=== PATIENT | female | born 1970 | race African-American/Black ===

== ENCOUNTER 2018-01-27 09:53 | Emergency (ER) | payer OTHER ==
[~2018-01-27] VITALS: Ht 167.6 cm; Wt 81.7 kg
[~2018-01-27 09:53] MED LIST: ARAVA20 MG PO; BACTRIM DS TAB1 EACH PO; CALCIUM OYSTER500 MG; HYDROXYCHLOROQ200 M1 PO; ONDANSETRON HCL4 M2 PO; PROTONIX 20 MG20 M1 PO; REMICADE 1100 MG/VIA; ZANTAC 150MG T150 MG PO
[2018-01-27] MEDS ORDERED: CYMBALTA20 MG PO (09:59)
[2018-01-27] MEDS ORDERED: ACTEMRA162 MG/0.9 SUBQ (10:00)
[2018-01-27 10:44] LABS: BASOPHILS 1.2 % (0.0-2.0); EOSINOPHILS 2.9 % (0.0-3.0); HEMOGLOBIN 13.9 gm/dL (12.0-15.0); LYMPHOCYTES 24.3 % (24.0-44.0); MCH 30.7 pg (26.0-34.0); MCHC 34.8 g/dL (28.0-37.0); MCV 88.3 fL (80.0-100.0); MONOCYTES 7.5 % (1.0-8.0); PLATELET COUNT 175 thou/uL (150-400); POLYS 64.1 % (36.0-66.0); RBC 4.53 mil/uL (4.20-5.00); RDW 13.9 % (10.5-14.5); WBC 6.2 thou/uL (4.0-11.0)
[2018-01-27 10:52] LABS: CALCIUM 8.5 mg/dL (8.5-10.1); CREATININE 0.5 mg/dL (0.6-1.0); POTASSIUM 3.9 mmol/L (3.5-5.1)
[2018-01-27] MEDS ORDERED: SENNA8.6 MG PO (11:19)
[2018-01-27] MEDS ORDERED: HYDROCORTISONE30 G9 RECTAL (11:19)
[2018-01-27] MEDS ORDERED: ANUSOL-HC25 MG RECTAL (11:19)
[2018-01-27 11:48] VITALS: BP 144/57
== END 2018-01-27 11:48 | disposition home or self-care (01) ==
LOC: ER 09:53
PROVIDERS: Physician Assistant
DX: K64.4 Residual hemorrhoidal skin tags (principal); R11.2 Nausea with vomiting, unspecified; F17.210 Nicotine dependence, cigarettes, uncomplicated; M06.9 Rheumatoid arthritis, unspecified; Z96.652 Presence of left artificial knee joint; Z90.49 Acquired absence of other specified parts of digestive tract

== ENCOUNTER 2018-04-14 16:30 | Emergency (ER) | payer OTHER ==
[~2018-04-14] VITALS: Ht 167.6 cm; Wt 79.4 kg
--- NOTE | ~2018-04-14 | EKG ---
[place] [address] [facility] [place] [address] ELECTROCARDIOGRAM REPORT Name: IFEOMA BROWN Room #: [facility]#: [id number] Admission: 04/14/18 Attend Phys: Discharge: Date of : 68 Report #: [id number] THIS REPORT FOR: //name// [facility] ED Test Date: 2018-04-14 Test Time: 17:06:09 Pat Name: IFEOMA BROWN Department: Room: Gender: F Customer Service Representative: SANDRA : 1970 Requested By: Isaac Valentino Order Number: [id number] MD: Finesse Bray Measurements Intervals [place] Rate: 86 P: 5 NH: 168 QRS: -2 QRSD: 86 T: 38 QT: 366 QTc: 438 Interpretive Statements Sinus rhythm Probable left atrial enlargement Left ventricular hypertrophy Compared to ECG 08/26/2011 11:10:44 Left ventricular hypertrophy now present Electronically Signed On 04-14-2018 17:20:57 CDT by Finesse Bray [email or web address] <ELECTRONICALLY SIGNED> By: Finesse Bray MD, [facility] 04/14/18 1720 1705 05 Finesse Bray MD, FACC /EPI
[~2018-04-14 16:30] MED LIST changes: +ACTEMRA162 MG/0.9 SUBQ; +ANUSOL-HC25 MG RECTAL; +CYMBALTA20 MG PO; +HYDROCORTISONE30 G9 RECTAL; +SENNA8.6 MG PO
[2018-04-14 17:17] LABS: ABSOLUTE NEUTROPHILS 4.5 thou/uL (1.4-8.2); BASOPHILS 1.4 % (0.0-2.0); HEMATOCRIT 43.4 % (37.0-47.0); HEMOGLOBIN 14.6 gm/dL (12.0-15.0); LYMPHOCYTES 24.1 % (24.0-44.0); MCH 29.8 pg (26.0-34.0); MCHC 33.7 g/dL (28.0-37.0); MCV 88.2 fL (80.0-100.0); MONOCYTES 9.1 % (1.0-8.0); PLATELET COUNT 252 thou/uL (150-400); POLYS 62.4 % (36.0-66.0); RBC 4.92 mil/uL (4.20-5.00); RDW 13.4 % (10.5-14.5); WBC 7.2 thou/uL (4.0-11.0)
[2018-04-14 17:23] LABS: ANION GAP 8 mmol/L (7-16); BUN 13 mg/dL (7-18); CHLORIDE 102 mmol/L (98-107); CO2 27 mmol/L (21-32); CREATININE 0.8 mg/dL (0.6-1.0); GLUCOSE 116 mg/dL (74-106); POTASSIUM 3.3 mmol/L (3.5-5.1); SODIUM 137 mmol/L (136-145)
[2018-04-14 17:25] LABS: URINE BILIRUBIN NEGATIVE (Negative); URINE BLOOD NEGATIVE (Negative); URINE CLARITY CLEAR; URINE COLOR YELLOW; URINE GLUCOSE-RANDOM* NEGATIVE (Negative); URINE KETONES 1+ (Negative); URINE LEUKOCYTES-REFLEX NEGATIVE (Negative); URINE NITRITE-REFLEX NEGATIVE (Negative); URINE PROTEIN (DIPSTICK) NEGATIVE (Negative); URINE SPECIFIC GRAVITY 1.025 (1.005-1.035); URINE UROBILINOGEN 0.2 E.U./dl (0.2-1.0)
[2018-04-14 17:32] LABS: ALBUMIN 3.8 g/dL (3.4-5.0); SGOT 20 U/L (15-37); SGPT 16 U/L (30-65); TOTAL BILIRUBIN 0.3 mg/dL (<0.1-1.0); TOTAL PROTEIN 7.9 g/dL (6.4-8.2); TROPONIN-I <0.06 ng/mL (<0.06)
[2018-04-14] MEDS ORDERED: IBUPROFEN 600600 M1 PO (18:24)
[2018-04-14 19:05] VITALS: BP 117/79
== END 2018-04-14 19:06 | disposition home or self-care (01) ==
LOC: ER 16:30
PROVIDERS: Physician Assistant
DX: R20.0 Anesthesia of skin (principal); R07.9 Chest pain, unspecified; M25.511 Pain in right shoulder; R11.0 Nausea; R10.9 Unspecified abdominal pain; R42 Dizziness and giddiness; M06.9 Rheumatoid arthritis, unspecified; K21.9 Gastro-esophageal reflux disease without esophagitis; F17.210 Nicotine dependence, cigarettes, uncomplicated; Z96.652 Presence of left artificial knee joint

== ENCOUNTER 2018-05-21 07:28 | Emergency (ER) | payer OTHER ==
[~2018-05-21] VITALS: Ht 167.6 cm; Wt 77.1 kg
[~2018-05-21 07:28] MED LIST changes: +IBUPROFEN 600600 M1 PO
[2018-05-21] MEDS ORDERED: MOBIC15 MG PO (08:43)
== END 2018-05-21 09:10 | disposition home or self-care (01) ==
LOC: ER 07:28
DX: J06.9 Acute upper respiratory infection, unspecified (principal); M06.9 Rheumatoid arthritis, unspecified; F17.210 Nicotine dependence, cigarettes, uncomplicated; Z96.652 Presence of left artificial knee joint

== ENCOUNTER 2018-07-03 04:32 | Inpatient (IN) | payer OTHER ==
[~2018-07-03] VITALS: Ht 167.6 cm; Wt 86.6 kg
[~2018-07-03 04:32] MED LIST changes: +MOBIC15 MG PO
[2018-07-03 04:34] VITALS: BP 150/91
[2018-07-03 04:56] LABS: ABSOLUTE NEUTROPHILS 6.3 thou/uL (1.4-8.2); BASOPHILS 0.6 % (0.0-2.0); EOSINOPHILS 7.8 % (0.0-3.0); HEMATOCRIT 48.4 % (37.0-47.0); HEMOGLOBIN 16.2 gm/dL (12.0-15.0); MCH 29.7 pg (26.0-34.0); MCHC 33.4 g/dL (28.0-37.0); MCV 88.9 fL (80.0-100.0); MONOCYTES 7.2 % (1.0-8.0); PLATELET COUNT 223 thou/uL (150-400); POLYS 60.4 % (36.0-66.0); RBC 5.44 mil/uL (4.20-5.00); RDW 14.7 % (10.5-14.5); WBC 10.4 thou/uL (4.0-11.0)
[2018-07-03 05:04] LABS: CALCIUM 8.6 mg/dL (8.5-10.1); CREATININE 0.7 mg/dL (0.6-1.0); POTASSIUM 3.3 mmol/L (3.5-5.1)
[2018-07-03 08:05] VITALS: BP 133/72
[2018-07-03 09:10] VITALS: BP 125/81
[2018-07-03 09:18] VITALS: BP 133/72
[2018-07-03 16:10] VITALS: BP 144/82
[2018-07-03 21:11] VITALS: BP 163/80
[2018-07-04 03:57] VITALS: BP 130/64
[2018-07-04 04:55] LABS: CALCIUM 8.5 mg/dL (8.5-10.1); CREATININE 0.5 mg/dL (0.6-1.0); POTASSIUM 3.2 mmol/L (3.5-5.1)
[2018-07-04 05:11] LABS: HEMATOCRIT 40.9 % (37.0-47.0); MCH 30.1 pg (26.0-34.0); MCHC 33.8 g/dL (28.0-37.0); RBC 4.59 mil/uL (4.20-5.00); RDW 14.5 % (10.5-14.5); WBC 18.6 thou/uL (4.0-11.0)
[2018-07-04 05:23] LABS: HEMOGLOBIN 13.8 gm/dL (12.0-15.0)
[2018-07-04 07:51] VITALS: BP 126/62
[2018-07-04 12:15] VITALS: BP 136/69
[2018-07-04 16:36] VITALS: BP 136/89
[2018-07-04 18:04] VITALS: BP 124/55
[2018-07-04 19:45] VITALS: BP 134/67
[2018-07-05 04:51] VITALS: BP 132/75
[2018-07-05 09:05] VITALS: BP 132/75
[2018-07-05 09:08] VITALS: BP 132/75
[2018-07-05 09:29] VITALS: BP 132/75
[2018-07-05] MEDS ORDERED: TRIPLE ANTIB28.35 GM TOP (10:11)
[2018-07-05] MEDS ORDERED: KEFLEX500 M1 PO (10:12)
[2018-07-05] MEDS ORDERED: PREDNISONE 10 M10 MG PO (10:12)
[2018-07-05 10:16] VITALS: BP 132/75
[2018-07-05 13:32] VITALS: BP 132/75
== END 2018-07-05 13:45 | disposition home or self-care (01) | DRG 603 ==
LOC: ER 04:32 → 2N 06:45 → EROBS 06:45 → 2N 09:02
PROVIDERS: Emergency Medicine; Hospitalist
DX: L03.90 Cellulitis, unspecified (principal); L23.4 Allergic contact dermatitis due to dyes; T30.4 Corrosion of unspecified body region, unspecified degree; T65.6X1A Toxic effect of paints and dyes, not elsewhere classified, accidental (unintentional), initial encounter; Z96.652 Presence of left artificial knee joint; M06.9 Rheumatoid arthritis, unspecified; F17.210 Nicotine dependence, cigarettes, uncomplicated; F32.9 Major depressive disorder, single episode, unspecified; Z98.51 Tubal ligation status; Z91.041 Radiographic dye allergy status; Y93.89 Activity, other specified; Y92.89 Other specified places as the place of occurrence of the external cause; Y99.8 Other external cause status
CPT/HCPCS: 10081

== ENCOUNTER 2019-06-07 08:48 | Emergency (ER) | payer BC ==
[~2019-06-07] VITALS: Ht 165.1 cm; Wt 79.4 kg
[~2019-06-07 08:48] MED LIST changes: +KEFLEX500 M1 PO; +PREDNISONE 10 M10 MG PO; +TRIPLE ANTIB28.35 GM TOP
[2019-06-07] MEDS ORDERED: MOBIC7.5 MG PO (09:17)
[2019-06-07 10:02] LABS: URINE BILIRUBIN NEGATIVE (Negative); URINE BLOOD NEGATIVE (Negative); URINE CLARITY CLEAR; URINE COLOR YELLOW; URINE GLUCOSE-RANDOM* NEGATIVE (Negative); URINE KETONES TRACE (Negative); URINE LEUKOCYTES-REFLEX NEGATIVE (Negative); URINE NITRITE-REFLEX NEGATIVE (Negative); URINE PROTEIN (DIPSTICK) NEGATIVE (Negative); URINE SPECIFIC GRAVITY >= 1.030 (1.005-1.035)
[2019-06-07 10:33] LABS: ABSOLUTE NEUTROPHILS 4.1 thou/uL (1.4-8.2); BASOPHILS 0.2 % (0.0-2.0); EOSINOPHILS 2.9 % (0.0-3.0); HEMATOCRIT 44.7 % (37.0-47.0); HEMOGLOBIN 14.7 gm/dL (12.0-15.0); LYMPHOCYTES 22.7 % (24.0-44.0); MCH 29.7 pg (26.0-34.0); MCHC 32.9 g/dL (28.0-37.0); MCV 90.1 fL (80.0-100.0); MONOCYTES 8.2 % (1.0-8.0); PLATELET COUNT 228 thou/uL (150-400); RBC 4.96 mil/uL (4.20-5.00); RDW 14.2 % (10.5-14.5); WBC 6.3 thou/uL (4.0-11.0)
[2019-06-07 10:36] LABS: ANION GAP 10 mmol/L (7-16); BUN 13 mg/dL (7-18); CALCIUM 9.2 mg/dL (8.5-10.1); CHLORIDE 105 mmol/L (98-107); CO2 26 mmol/L (21-32); CREATININE 0.6 mg/dL (0.6-1.0); GLUCOSE 87 mg/dL (74-106); POTASSIUM 3.5 mmol/L (3.5-5.1); SODIUM 141 mmol/L (136-145)
[2019-06-07 10:47] LABS: ALBUMIN 4.1 g/dL (3.4-5.0); LIPASE 51 U/L (73-393); SGOT 15 U/L (15-37); SGPT 20 U/L (30-65); TOTAL BILIRUBIN 0.6 mg/dL (<0.1-1.0); TOTAL PROTEIN 7.9 g/dL (6.4-8.2); TROPONIN-I <0.06 ng/mL (<0.06)
[2019-06-07] MEDS ORDERED: TRAMADOL 50 MG50 MG PO (12:16)
[2019-06-07] MEDS ORDERED: PROTONIX40 MG PO (12:16)
[2019-06-07 12:40] VITALS: BP 107/48
--- NOTE | 2019-06-07 17:09 | EKG ---
[address] [place] [address] ELECTROCARDIOGRAM REPORT Name: IFEOMA BROWN Room #: [facility]#: [id number] Admission: 06/07/19 Attend Phys: Discharge: 06/07/19 Date of : [birth year] Report #: [id number] THIS REPORT FOR: //name// [facility] ED Test Date: 2019-06-07 Test Time: 10:07:47 Pat Name: IFEOMA BROWN Department: Room: Gender: F Project Buyer: AM : 1970 Requested By: Jerrell Hadley Order Number: [id number] MD: Finesse Bray Measurements Intervals [employer] Rate: 62 P: 34 ME: 175 QRS: -10 QRSD: 88 T: 24 QT: 407 QTc: 414 Interpretive Statements Sinus rhythm Left ventricular hypertrophy Compared to ECG 04/14/2018 17:06:09 No significant changes Electronically Signed On 06-07-2019 17:09:18 [employer] by Finesse Bray [email or web address] <ELECTRONICALLY SIGNED> By: Finesse Bray MD, [facility] 06/07/19 1709 1007 1007 Finesse Bray MD, FACC /EPI
== END 2019-06-07 12:40 | disposition home or self-care (01) ==
LOC: ER 08:48
PROVIDERS: Emergency Medicine
DX: M51.36 Other intervertebral disc degeneration, lumbar region (principal); N92.1 Excessive and frequent menstruation with irregular cycle; R22.9 Localized swelling, mass and lump, unspecified; M06.9 Rheumatoid arthritis, unspecified; F17.210 Nicotine dependence, cigarettes, uncomplicated; Z90.49 Acquired absence of other specified parts of digestive tract; Z96.652 Presence of left artificial knee joint; Z98.51 Tubal ligation status; Z91.041 Radiographic dye allergy status

== ENCOUNTER → 2019-11-02 | Outpatient (CLI) | payer OTHER ==
[~2019-11-02] MED LIST changes: +MOBIC7.5 MG PO; +PROTONIX40 MG PO; +TRAMADOL 50 MG50 MG PO
== END ==
LOC: CAT 08-03 10:40 → ULTRA 09-07 10:45 → CAT 09-07 22:09
DX: Z12.31 Encounter for screening mammogram for malignant neoplasm of breast (principal); N83.202 Unspecified ovarian cyst, left side; J98.4 Other disorders of lung

== ENCOUNTER 2019-11-27 12:08 | Emergency (ER) | payer OTHER ==
[~2019-11-27] VITALS: Ht 167.6 cm; Wt 81.7 kg
[2019-11-27 14:07] VITALS: BP 129/66
== END 2019-11-27 14:15 | disposition home or self-care (01) ==
LOC: ER 12:08
DX: R60.0 Localized edema (principal); M79.671 Pain in right foot; M79.672 Pain in left foot; M06.9 Rheumatoid arthritis, unspecified; F17.210 Nicotine dependence, cigarettes, uncomplicated; Z98.51 Tubal ligation status; Z90.49 Acquired absence of other specified parts of digestive tract; Z79.899 Other long term (current) drug therapy; Z96.652 Presence of left artificial knee joint; Z98.890 Other specified postprocedural states

== ENCOUNTER 2019-12-11 09:37 | Emergency (ER) | payer OTHER ==
[~2019-12-11] VITALS: Ht 167.6 cm; Wt 81.7 kg
[2019-12-11] MEDS ORDERED: NORFLEX100 MG PO (11:32)
[2019-12-11] MEDS ORDERED: NORCO 5-325 TA1 EAC1 PO (11:32)
[2019-12-11] MEDS ORDERED: SENNA-DOCUSATE1 EAC1 PO (11:32)
[2019-12-11 11:51] VITALS: BP 129/65
== END 2019-12-11 11:52 | disposition home or self-care (01) ==
LOC: ER 09:37
DX: S16.1XXA Strain of muscle, fascia and tendon at neck level, initial encounter (principal); S39.012A Strain of muscle, fascia and tendon of lower back, initial encounter; M06.9 Rheumatoid arthritis, unspecified; F17.210 Nicotine dependence, cigarettes, uncomplicated; Z91.041 Radiographic dye allergy status; Z79.899 Other long term (current) drug therapy; Z96.652 Presence of left artificial knee joint; Z98.51 Tubal ligation status; Z90.49 Acquired absence of other specified parts of digestive tract; V49.59XA Passenger injured in collision with other motor vehicles in traffic accident, initial encounter; Y93.89 Activity, other specified; Y92.413 State road as the place of occurrence of the external cause; Y99.9 Unspecified external cause status

== ENCOUNTER → 2020-05-09 | Outpatient (CLI) | payer OTHER ==
[~2020-05-09] MED LIST changes: +NORCO 5-325 TA1 EAC1 PO; +NORFLEX100 MG PO; +SENNA-DOCUSATE1 EAC1 PO
== END ==
LOC: ULTRA 14:54
PROVIDERS: ATTEND Obstetrics & Gynecology
DX: N83.291 Other ovarian cyst, right side (principal)

== ENCOUNTER → 2020-07-02 | Outpatient (CLI) | payer OTHER | LOC: CAT 09:02 | PROVIDERS: ATTEND Obstetrics & Gynecology | DX: N85.8 Other specified noninflammatory disorders of uterus (principal) ==

== ENCOUNTER 2020-09-24 08:38 | Emergency (ER) | payer OTHER ==
[~2020-09-24] VITALS: Ht 167.6 cm; Wt 81.2 kg
== END 2020-09-24 09:34 | disposition home or self-care (01) ==
LOC: ER 08:38
DX: R22.31 Localized swelling, mass and lump, right upper limb (principal); F17.210 Nicotine dependence, cigarettes, uncomplicated; Z90.49 Acquired absence of other specified parts of digestive tract; Z79.899 Other long term (current) drug therapy; Z91.048 Other nonmedicinal substance allergy status

== ENCOUNTER → 2020-09-27 | Outpatient (CLI) | payer OTHER | LOC: CAT 09:45 | PROVIDERS: ATTEND Nurse Practitioner | DX: M06.9 Rheumatoid arthritis, unspecified (principal); R07.9 Chest pain, unspecified; F17.200 Nicotine dependence, unspecified, uncomplicated ==

== ENCOUNTER 2020-10-05 11:24 | Inpatient (IN) | payer OTHER ==
[~2020-10-05] VITALS: Ht 167.6 cm; Wt 82.6 kg
--- NOTE | ~2020-10-05 | O ---
[facility] [place] [address] [place] [address] OPERATIVE REPORT Name: IFEOMA BROWN Room #: 444-P [facility] IN .R.#: [id number] Admission: 10/12/20 Attend Phys: Lisa Delatorre DO Discharge: 10/14/20 Date of : 68 Report #: [id number] THIS REPORT FOR: cc: Amadou Chandler MD, Neal A. MD Farris,Lisa Patterson DO ~ DATE OF SERVICE: 10/12/2020 PREOPERATIVE DIAGNOSES: 1. Uterine fibroid. 2. Menorrhagia. 3. Irregular menses. 4. Dysmenorrhea. 5. Pelvic pain. POSTOPERATIVE DIAGNOSES: 1. Uterine fibroid. 2. Menorrhagia. 3. Irregular menses. 4. Dysmenorrhea. 5. Pelvic pain. OPERATIVE PROCEDURE: Total abdominal hysterectomy with bilateral salpingectomy. SURGEON: Dr. Lisa Delatorre. ANESTHESIA: General. INTRAVENOUS FLUIDS: 1500 mL. ESTIMATED BLOOD LOSS: 400 mL. URINE OUTPUT: 500 mL. COMPLICATIONS: None. PATHOLOGY: Uterus, cervix, bilateral fallopian tubes and fibroid. DESCRIPTION OF PROCEDURE: The patient was taken to the operating room where general anesthesia was administered and found to be adequate. She was then prepped and draped in normal sterile fashion in dorsal supine position. A Pfannenstiel skin incision was made in the patient's abdomen approximately 2 cm above the symphysis pubis and carried through to the underlying layer of fascia. The fascia was nicked in the midline and then the fascial incision was carried laterally with Fowler scissors. The superior aspect of the fascial incision was [facility] [address] [place] [address] OPERATIVE REPORT Name: IFEOMA BROWN Room #: 444-P [facility] IN M.R.#: [id number] Admission: 10/12/20 Attend Phys: Lisa Delatorre DO Discharge: 10/14/20 Date of : 68 Report #: [id number] grasped with Eva clamps, elevated and the underlying rectus muscle dissected off bluntly as well as with Fowler scissors. Attention was then turned to the inferior aspect of this incision, which in a similar fashion was grasped with Eva clamps, elevated and the underlying rectus muscle dissected off bluntly and with Fowler scissors. The rectus muscles were in the midline. The peritoneum was identified and tented upward with curved stats and entered sharply with Metzenbaum scissors. The peritoneal incision was then extended superiorly and inferiorly. The Ashtyn retractor was placed in the patient's abdomen. The patient was then placed in slight Trendelenburg position. The bowel was then packed cephalad with moist laparotomy sponges and the superior plate of the Sweetwater retractor placed in the patient's abdomen. The anterior bladder blade was also placed in the patient's abdomen without complication. The uterus was then grasped with a Nelson tenaculum at the fundus. The right fallopian tube was identified. Prior tubal ligation was noted that the remaining portion of the fallopian tube was excised across the mesosalpinx and sent for pathology. The right fallopian tube was then identified and grasped with a Yonatan clamp. It was transected underneath its mesosalpinx. Again, prior tubal ligation effects were noted. Once both tubes were removed, the uteroovarian ligament as well as the round ligament and broad ligament were taken down with LigaSure device on the right. This exact same procedure, the uteroovarian ligament, round ligament and broad ligament were transected with LigaSure device on the left as well. It was noted that the fibroid was within the broad ligament where we transected the broad ligament was medial to the fibroid between the uterus and the fibroid and the fibroid remained intact at that time. The uterine arteries were then transected using the LigaSure device after the vesicouterine peritoneum was dissected off the anterior aspect of the uterus and cervix with moist Ray-Yessica sponges. Once the uterine arteries were transected, the uterus was transected off the apex of the cervix with Bovie cautery and handed off for pathology. Attention was then turned to the uterine fibroid where a blunt dissection was performed to allow the fibroid to be mobilized from the ligament, then a small portion of the ligament was transected using the LigaSure device to obtain hemostasis and the fibroid was sent for pathology. Attention was then turned to the patient's cervix, was grasped with a Eva clamp and an incision was made at the vaginal cervical junction with a scalpel. Once the incision was made, this was carried circumferentially around the cervix at the apex of the vagina using heavy Fowler scissors. Once the cervix was completely freed from the vaginal mucosa was handed off for pathology. The anterior vaginal mucosa as well as the posterior vaginal mucosa and the pelvic peritoneum were then reapproximated in a running locked fashion to create the vaginal cuff using 0 Vicryl. The pelvis was copiously irrigated and hemostasis was then achieved using two mcmqxr-vx-befur stitches on the posterior aspect of the vaginal cuff towards the right margin. Jaison was placed over all pedicles including the vaginal cuff. The bladder was placed in its normal anatomical position. All sponges were removed from the patient's abdomen. The Sweetwater retractor was then removed from the patient's abdomen. The bowel was placed in [address] [place] [address] OPERATIVE REPORT Name: IFEOMA BROWN Room #: 444-P [facility] M.R.#: [id number] Admission: 10/12/20 Attend Phys: Lisa Delatorre DO Discharge: 10/14/20 Date of : 68 Report #: [id number] its normal anatomical position. The muscle and peritoneum were then reapproximated using 2-0 Vicryl. The muscles were noted to be hemostatic. The fascia was reapproximated with 0 PDS in a running fashion. The subcutaneous tissue was irrigated. Bovie cautery was used to obtain excellent hemostasis. The subcutaneous tissue was then reapproximated using 3-0 plain, and the skin was closed and a subcuticular stitch using 4-0 Vicryl. The patient tolerated the procedure well. Sponge, lap and needle counts were reported as correct and the patient was taken to the recovery room in stable condition. By: 1433 1454 Lisa Delatorre DO /nt
[2020-10-10] MEDS ORDERED: CYMBALTA30 MG PO (15:44)
[2020-10-10] MEDS ORDERED: TRAMADOL 50 MG50 MG PO (15:44)
[2020-10-10] MEDS ORDERED: LEFLUNOMIDE 1010 MG PO (15:45)
[2020-10-10] MEDS ORDERED: VITAMIN D31250 MC1 PO (15:46)
[2020-10-10] MEDS ORDERED: K-DUR10 MEQ PO (15:47)
[2020-10-10] MEDS ORDERED: FLEXERIL PO (15:48)
[2020-10-10] MEDS ORDERED: SENNA-DOCUSATE1 EAC1 PO (15:49)
[2020-10-10] MEDS ORDERED: IBUPROFEN 800800 M1 PO (15:50)
[2020-10-10] MEDS ORDERED: FAMOTIDINE 20 M20 MG PO (16:06)
[2020-10-12] VITALS (10 sets, daily range): BP systolic 137–165; BP diastolic 69–96
[2020-10-12 07:36] LABS: HEMATOCRIT 38.6 % (37.0-47.0); HEMOGLOBIN 12.8 gm/dL (12.0-15.0); MCH 29.6 pg (26.0-34.0); MCHC 33.1 g/dL (28.0-37.0); MCV 89.3 fL (80.0-100.0); RBC 4.32 mil/uL (4.20-5.00); RDW 15.2 % (10.5-14.5); WBC 5.2 thou/uL (4.0-11.0)
--- NOTE | 2020-10-12 19:56 | NUR ---
PATIENT ARRIVED TO UNIT AT APPROX 1145. ORIENTED TO ROOM AND FALL PRECAUTIONS PLACED. SCD'S APPLIED. ADMISSION HX AND EDUCATION COMPLETE ALONG W MEDICATION REC AND PREFERRED PHARMACY. POST OP DAY 0; LOWER ABDOMINAL GROIN DRESSING C/D/I. PATIENT IN PAIN; VOICES PAIN 10/10. MEDICATED AND PROVIDED SOME RELIEF. MERIDA INTACT; IN PLACE FOR IMMOBILIZATION/POST-OP. PATIENT VOICED NO FURTHER NEEDS. REINFORCED TO NOC. RN
[2020-10-13 00:31] VITALS: BP 130/58
--- NOTE | 2020-10-13 03:57 | NUR ---
Pt. rested quietly at short intervals during the night when checked on during frequent rounds. She has been medicated with pain meds for c/o abdominal cramping (see emar) with some relief noted. She did have a small amount of vaginal bleeding on bed linen. Pt. did get up to dangle at the bedside for a few minutes during the night. Dressing to abdomen is clean,dry and intact.
[2020-10-13 04:35] LABS: HEMOGLOBIN 12.8 gm/dL (12.0-15.0); MCH 29.5 pg (26.0-34.0); MCHC 32.9 g/dL (28.0-37.0); MCV 89.5 fL (80.0-100.0); RBC 4.35 mil/uL (4.20-5.00); WBC 9.2 thou/uL (4.0-11.0)
[2020-10-13 05:17] VITALS: BP 131/68
[2020-10-13 05:18] VITALS: BP 131/68
[2020-10-13 07:30] VITALS: BP 134/69
--- NOTE | 2020-10-13 13:56 | NUR ---
ASSUMED PT CARE AROUND 0700. PT ALERT X ORIENTED X4. ON ROOM AIR. 1 PERSON ASST TO THE BATHROOM. DRINKING AND URINATING WELL. ON REGULAR DIET. IV RT AND LF HAND AND SALINE LOCKED.PAIN CONTROLLED BY PAIN MEDICINE. CALL LIGHT IN REACH. BED IN LOW POSITION. WILL CONTINUE TO MONITOR.
[2020-10-13 16:42] VITALS: BP 146/89
[2020-10-13 20:40] VITALS: BP 144/76
--- NOTE | 2020-10-14 02:00 | NUR ---
PT ALERT,CALM AND COPERATIVE WITH CARE.PT C/O PAIN,MANAGED WITH MED. PT UP WITH SBA.DRSG TO HER ABD DRY,NO DRAINAGE AND OPEN TO AIR. ADEQUATE URINE OUTPUT NOTED POST MERIDA DC,DARK YELLOW IN COLOR.NO VAGINAL BLEEDING NOTED.PT SLEEPING ON HER BED AT THIS TIME.CALL LIGHT WITHIN REACH.
[2020-10-14 02:25] VITALS: BP 135/78
[2020-10-14 07:30] VITALS: BP 145/92
[2020-10-14 07:40] VITALS: BP 114/92; BP 145/92
[2020-10-14] MEDS ORDERED: SENNA-DOCUSATE1 EAC1 PO (10:38)
[2020-10-14] MEDS ORDERED: HYDROCODON-ACE1 EAC7 PO (10:38)
--- NOTE | 2020-10-14 11:01 | NUR ---
ASSUMED PT CARE THIS AM. PT IS ALERT & ORIENTED X4. PT HAS IV SITE ON R HAND SALINE LOCKED. PT IS POST OP DAY 2. PT C/O PAIN AND GIVEN PT MEDICATION. WILL INFORM DR IF PT IS PASSING GAS AND HAVING BM. PT ON THE BED WATCHING, BED ON THE LOWEST POSITION, CALL LIGHT WITHIN REACH. WILL CONTINUE TO MONITOR PT. FOLLOW POC.
[2020-10-14 16:14] VITALS: BP 149/76
[2020-10-14 17:23] VITALS: BP 149/76
--- NOTE | 2020-10-15 18:06 | PATH ---
[facility] [place] [address] PATHOLOGY RPT PROCEDURE Name: IFEOMA BROWN P[place] Room #: 444-P [facility] IN M.R.#: [id number] Admission: 10/12/20 Date of : 68 Discharge: 10/14/20 Report #: [id number] Path Case #: [id number] [facility] Accession Number: [id number] . 01 Material submitted: . uterus - UTERUS AND BILATERAL FALLOPIAN TUBES. Modifiers: bilateral . 01 Clinical history: . DS 10/05/TOTAL ABDOMINAL HYSTERECTOMY TOTAL ABDOMINAL HYSTERECTOMY (+++) BILATERAL SALPINGECTOMY UTERINE MASS, PELVIC PAIN, IRREGULAR MENSES, MENORRHAGIA, DYSMENORRHEA . 02 Diagnosis: Uterus and bilateral fallopian tubes, hysterectomy with bilateral salpingectomy: - Weakly proliferative endometrium with tubal metaplasia; negative for hyperplasia or malignancy. - Extensive adenomyosis present. - Multiple leiomyomata measuring up to 1.5 cm in greatest dimension. - Mild acute and chronic cervicitis associated with reactive atypia and hyperkeratosis as well as nabothian cysts. - Bilateral fallopian tubes with congestion as well as reactive changes. (IUV:evelio; 10/15/2020) MBAlberto 10/15/2020 1618 Local . 02 Electronically signed: . Leesa Coates MD, Pathologist NPI- [id number] . 01 Gross description: . Labeled: Uterus and bilateral fallopian tubes Specimen received: in formalin Specimen received as hemorrhagic nodule, bilateral amputated fallopian tubes, amputated cervix and uterine fundus Uterus weight: 160 gm Uterus: 99 cm Serosa: pink-alonso with focal adhesions and inked as anterior blue and posterior black Ectocervix: Unremarkable Cervical os: patent, measuring 1 x 0.2 cm Endocervical canal: squamo-columnar juntion visualized Endometrial cavity: 5 x 3.5 cm Endometrial thickness: 0.1 cm Myometrial thickness: 3.2 cm trabecular Lesions/abnormalities: Multiple fibroids, presumed, measuring up to 1.5 cm without any areas of hemorrhage and softening or necrosis [address] [address] PATHOLOGY RPT PROCEDURE Name: IFEOMA BROWN Room #: 444-P [facility] IN M.R.#: [id number] Admission: 10/12/20 Date of : 68 Discharge: 10/14/20 Report #: [id number] Path Case #: [id number] 3 gm fimbriated fallopian tube: 3.1 cm in length, 0.6 cm in diameter fallopian tube appearance: Unremarkable 4 gm fimbriated fallopian tube: 4.5 cm in length, 0.6 cm in diameter fallopian tube appearance: Unremarkable . . Publications Designer sections are submitted as follows: A1-fallopian tube A2-opposite fallopian tube A3 anterior cervix A4 posterior cervix A5 anterior endomyometrium and myometrial nodule A6 hemorrhagic nodule and posterior endomyometrium([facility]; 10/12/2020) ONELIA/ONELIA 10/12/2020 2342 Local . 02 Pathologist provided ICD-10: N85.8, N80.0, N25.9, N72, N88.8 . 02 CPT . 319705 Specimen Comment: A courtesy copy of this report has been sent to [phone], [phone] Specimen Comment: [id number] Specimen Comment: Report sent to / Performed at: [address], [place] [id number] MD Brody Pickard MD Phone: [phone] Performed at: [address] [id number] MD Leesa Coates MD Phone: [phone]
== END 2020-10-14 19:00 | disposition home or self-care (01) | DRG 743 ==
LOC: OR 11:24 → TBA 10-12 06:04 → 4S 10-12 06:04 → EDSTATUS 10-12 10:12 → PRE 10-12 10:30 → 4S 10-12 11:47 → OR 10-12 13:24 → PRE 10-12 16:40 → 4S 10-14 19:00
PROVIDERS: Anesthesiology; ADMIT Obstetrics & Gynecology; ATTEND Obstetrics & Gynecology
DX: D25.9 Leiomyoma of uterus, unspecified (principal); N92.0 Excessive and frequent menstruation with regular cycle; N94.6 Dysmenorrhea, unspecified
CPT/HCPCS: 10102; 50010; 50093; 50101; 50386; 50455; 52287; 54118; 56524; 56525; 56526; 57092; 62110; 62900; 70005

== ENCOUNTER → 2020-10-08 | Outpatient (CLI) | payer OTHER ==
[~2020-10-08] MED LIST changes: +CYMBALTA30 MG PO; +FAMOTIDINE 20 M20 MG PO; +FLEXERIL PO; +IBUPROFEN 800800 M1 PO; +K-DUR10 MEQ PO; +LEFLUNOMIDE 1010 MG PO; +VITAMIN D31250 MC1 PO
== END ==
LOC: LAB 14:38
PROVIDERS: ATTEND Obstetrics & Gynecology
DX: Z01.812 Encounter for preprocedural laboratory examination (principal); Z20.822 Contact with and (suspected) exposure to COVID-19

== ENCOUNTER 2020-10-09 08:12 | Emergency (ER) | payer OTHER ==
[~2020-10-09] VITALS: Ht 167.6 cm; Wt 79.4 kg
[~2020-10-09 08:12] MED LIST changes: -CYMBALTA30 MG PO; -FAMOTIDINE 20 M20 MG PO; -FLEXERIL PO; -IBUPROFEN 800800 M1 PO; -K-DUR10 MEQ PO; -LEFLUNOMIDE 1010 MG PO; -VITAMIN D31250 MC1 PO
[2020-10-09 08:15] VITALS: BP 138/72
[2020-10-10] MEDS ORDERED: CYMBALTA30 MG PO (15:44)
[2020-10-10] MEDS ORDERED: TRAMADOL 50 MG50 MG PO (15:44)
[2020-10-10] MEDS ORDERED: LEFLUNOMIDE 1010 MG PO (15:45)
[2020-10-10] MEDS ORDERED: VITAMIN D31250 MC1 PO (15:46)
[2020-10-10] MEDS ORDERED: K-DUR10 MEQ PO (15:47)
[2020-10-10] MEDS ORDERED: FLEXERIL PO (15:48)
[2020-10-10] MEDS ORDERED: SENNA-DOCUSATE1 EAC1 PO (15:49)
[2020-10-10] MEDS ORDERED: IBUPROFEN 800800 M1 PO (15:50)
[2020-10-10] MEDS ORDERED: FAMOTIDINE 20 M20 MG PO (16:06)
== END 2020-10-09 09:09 | disposition home or self-care (01) ==
LOC: ER 08:12
DX: S16.1XXA Strain of muscle, fascia and tendon at neck level, initial encounter (principal); S49.92XA Unspecified injury of left shoulder and upper arm, initial encounter; F17.210 Nicotine dependence, cigarettes, uncomplicated; Z79.899 Other long term (current) drug therapy; Z90.49 Acquired absence of other specified parts of digestive tract; Z91.048 Other nonmedicinal substance allergy status; V43.52XA Car driver injured in collision with other type car in traffic accident, initial encounter; Y93.89 Activity, other specified; Y92.410 Unspecified street and highway as the place of occurrence of the external cause; Y99.8 Other external cause status

== ENCOUNTER → 2021-01-30 | Outpatient (CLI) | payer OTHER ==
[~2021-01-30] VITALS: Ht 165.1 cm; Wt 81.6 kg
[~2021-01-30] MED LIST changes: +ALEVE220 MG PO; +CYMBALTA30 MG PO; +FAMOTIDINE 20 M20 MG PO; +FLEXERIL PO; +HYDROCODON-ACE1 EAC7 PO; +IBUPROFEN 800800 M1 PO; +K-DUR10 MEQ PO; +LEFLUNOMIDE 1010 MG PO; +VITAMIN D31250 MC1 PO
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
[2021-01-30 09:12] VITALS: BP 128/71
--- NOTE | 2021-01-30 10:17 | NUR ---
Pain Clinic Assessment: 1. History of Osteoarthritis: KNEES BACK History of Rheumatoid Arthritis: HANDS FEET NECK 2. Height: 5 ft. 5 in. 165.1 cm. Weight: 180.0 lb. oz. 81.648 kg. Patient's BMI: 30.0 3. Vital Signs: BP: 128/71 Pulse: 79 Resp: 16 Temp: 02 Sat: 100 ECG Mon: 4. Pain Intensity: 7 5. Fall Risk: Dizziness: N Needs help standing or walking: N Fallen in the last 3 months: N Fall risk comments: 6. Patient on Blood Thinner: None 7. History of Hypertension: N 8. Opioid Therapy greater than 6 weeks: Y Opiate Contract Signed: 9. Risk Assessment Tool Provided: LOW -3 10. Functional Assessment Tool: 53/70 11. Recreational Drug Use: Never Drug Type: Tobacco Use: Current Every Day Smoker Tobacco Type: Cigarettes Amount or Packs/day: 1 PACK How Many Years: 30 Alcohol Use: Yes Frequency: Special Occasions Quant:
== END ==
LOC: PAIN 08:36
PROVIDERS: ATTEND Anesthesiology Pain Medicine
DX: M51.17 Intervertebral disc disorders with radiculopathy, lumbosacral region (principal); M47.27 Other spondylosis with radiculopathy, lumbosacral region; G89.4 Chronic pain syndrome; Z79.899 Other long term (current) drug therapy; Z79.891 Long term (current) use of opiate analgesic

== ENCOUNTER → 2021-02-26 | Outpatient (CLI) | payer OTHER ==
[~2021-02-26] VITALS: Ht 165.1 cm; Wt 81.6 kg
--- NOTE | ~2021-02-26 | HPC ---
[address] [address] PAIN MANAGEMENT CONSULTATION Name: IFEOMA BROWN Room #: REG [facility] NilsaBrandonAlbertoBrandon#: [id number] Admission: 02/26/21 Attend Phys: Ned Velásquez DO Discharge: Date of : 68 Report #: [id number] THIS REPORT FOR: cc: Amadou Chandler MD, Neal A. MD Johnson, James E. DO ~ cc: Amadou Richard MD DATE OF SERVICE: 02/26/2021 PRIMARY CARE PHYSICIAN: Amadou Chandler MD CHIEF COMPLAINT: Low back pain, bilateral lower extremity pain. HISTORY OF PRESENT ILLNESS: As you know, the patient is a 50-year-old female reporting longstanding history of low back pain, bilateral lower extremity pain. The patient states the pain began after bending over from a standing position. Upon arising, her pain began to radiate from the back down the legs. She trialled conservative treatment, but did not notice much in the way of improvement. She was sent to our clinic to discuss interventional treatment options. She was seen in consultation per nurse practitioner Flaca's request. On 01/30/2021, we have completed the prior authorization process and the patient now returns today in followup visit to undergo the first in a series of lumbar epidural injections. The patient is placing her current pain score 7/10. She has had no changes in her medication management that would preclude the patient from undergoing the epidural injection today. She suffered no new injury or trauma. She returns today first in the series of lumbar epidural injections under fluoroscopic guidance. ALLERGIES: No known drug allergies. CURRENT MEDICATIONS: See chart. SOCIAL HISTORY: The patient continues to smoke 1 pack of tobacco per day, has done so for 30 years. Denies IV or illicit drug use. Denies any chronic alcohol use. She is unaccompanied today. IMAGING: No new imaging available. PQRS: The patient has known arthritic changes of the bilateral knees and lumbar spine. She does suffer from rheumatoid arthritis affecting hands, feet and neck. She is treated for the disease process. She is placing pain today, 7/10. She is not a fall risk, has not had a fall in last 3 months. She is on opioids, has a low opioid addiction potential. PHYSICAL EXAMINATION: GENERAL: Well-developed, well-nourished, well-hydrated 50-year-old female [address] [address] PAIN MANAGEMENT CONSULTATION Name: IFEOMA BROWN Room #: REG CLI [facility]#: [id number] Admission: 02/26/21 Attend Phys: Ned Velásquez DO Discharge: Date of : 68 Report #: [id number] appearing stated age, pain is rated up to 7/10. HEENT: normocephalic, atraumatic. Pupils equal, round and responsive. She is wearing a mask in compliance with COVID-19 regulations. EXTREMITIES: Show no clubbing, no cyanosis, no edema. MUSCULOSKELETAL: Lower extremity strength remains symmetrical, 5/5. Seated straight leg raising negative. Supine straight leg raising negative. Ramsey's test is negative. Modified Gaenslen's test is positive for axial back pain. ASSESSMENT: 1. Chronic lumbar radiculopathy. 2. Lumbosacral spondylosis with radicular symptoms. 3. Chronic low back pain. 4. Mild degenerative changes at the L5-S1 level. 5. Moderate degenerative changes at the L4-L5 level. 6. Chronic intractable pain. PLAN: 1. The patient returns today in followup visit having received authorization to undergo lumbar epidural injection under fluoroscopic guidance. She is placing pain as high as 7/10. She returns today to undergo the procedure. She has been advised of the risks and the benefits of this procedure. These risks include, but are not necessarily limited to bleeding, bruising, infection, worsening pain, no relief of pain, also risk of temporary or permanent muscle weakness, temporary or permanent nerve damage, possible paralysis, and . The patient states understood and wished to proceed. 2. No medication changes made at today's visit. The patient will continue current medical therapy as prior prescribed. 3. We plan to see the patient back in followup visit on an as needed basis for the next in the series of epidural injections. We are hopeful the patient will see good benefit with today's procedure. PROCEDURE NOTE DESCRIPTION OF PROCEDURE: L5-S1 interlaminar epidural steroid injection under fluoroscopic guidance. This is the first procedure of the first series that the patient is undergoing. After obtaining written consent, the patient was taken back to the fluoroscopy suite, placed in a prone position with pillow under the abdomen to decrease lumbar lordosis. The skin overlying the lumbosacral area was then prepped and draped in aseptic fashion. The L5-S1 vertebral interspace was then identified by AP fluoroscopy. The skin and subcutaneous tissue overlying the target site of injection was anesthetized with 3 mL 1% lidocaine. A(n) 20 gauge 3.5 inch Tuohy needle was then advanced under fluoroscopic [address] [address] PAIN MANAGEMENT CONSULTATION Name: IFEOMA BROWN [id number] Admission: 02/26/21 Attend Phys: Ned Velásquez DO Discharge: Date of : 68 Report #: [id number] guidance towards the epidural space using a right paramedian approach. The epidural space was identified using loss of resistance to air technique. After negative aspiration for heme or cerebrospinal fluid, a total of 1 mL of Omnipaque was injected. A lumbar epidurogram was confirmed using both AP and lateral fluoroscopy. After negative aspiration for heme or cerebrospinal fluid, 5 mL of a solution containing 2 mL 40 mg per mL 80 mg total triamcinolone along with 3 mL of lidocaine 1% was injected in increments. Contrast spread was noted in posterior epidural space. The needle was then retracted approximately half way and needle tract flushed with 1 mL of 1% lidocaine. Needle was then removed. There were no apparent sensory or motor deficits in the lower extremity following the procedure. A sterile bandage was placed over the injection site. The heart rate, pulse, oximetry and blood pressure were continuously monitored after the procedure. There were no apparent complications. The patient tolerated the procedure well and was carefully escorted to the recovery room in stable condition. There were no apparent complications. After meeting discharge criteria, the patient was then discharged home. By: [id number] Ned Velásquez DO /nt
[2021-02-26 10:37] VITALS: BP 132/58
--- NOTE | 2021-02-26 10:56 | NUR ---
Pain Clinic Assessment: 1. History of Osteoarthritis: KNEES BACK History of Rheumatoid Arthritis: HANDS FEET NECK 2. Height: 5 ft. 5 in. 165.1 cm. Weight: 180.0 lb. oz. 81.648 kg. Patient's BMI: 30.0 3. Vital Signs: BP: 132/58 Pulse: 91 Resp: 16 Temp: 02 Sat: 100 ECG Mon: 4. Pain Intensity: 7 5. Fall Risk: Dizziness: N Needs help standing or walking: N Fallen in the last 3 months: N Fall risk comments: 6. Patient on Blood Thinner: None 7. History of Hypertension: N 8. Opioid Therapy greater than 6 weeks: Y Opiate Contract Signed: 9. Risk Assessment Tool Provided: LOW -3 10. Functional Assessment Tool: 53/70 11. Recreational Drug Use: Never Drug Type: Tobacco Use: Current Every Day Smoker Tobacco Type: Cigarettes Amount or Packs/day: a pack How Many Years: Alcohol Use: Yes Frequency: Special Occasions Quant: 2
== END | disposition home or self-care (01) ==
LOC: PAIN 07:09
PROVIDERS: ATTEND Anesthesiology Pain Medicine
DX: M51.16 Intervertebral disc disorders with radiculopathy, lumbar region (principal); M47.26 Other spondylosis with radiculopathy, lumbar region; G89.29 Other chronic pain; M19.90 Unspecified osteoarthritis, unspecified site; Z98.890 Other specified postprocedural states; Z79.899 Other long term (current) drug therapy

== ENCOUNTER 2021-04-12 18:50 | Emergency (ER) | payer MEDICARE, OTHER ==
[~2021-04-12] VITALS: Ht 167.6 cm; Wt 79.4 kg
[2021-04-12] MEDS ORDERED: KLOR-CON 10 ER10 MEQ PO (19:12)
[2021-04-12 20:11] LABS: ABSOLUTE NEUTROPHILS 5.4 thou/uL (1.4-8.2); BASOPHILS 1.2 % (0.0-2.0); EOSINOPHILS 1.8 % (0.0-3.0); HEMOGLOBIN 13.5 gm/dL (12.0-15.0); LYMPHOCYTES 10.8 % (24.0-44.0); MCH 30.8 pg (26.0-34.0); MCHC 33.7 g/dL (28.0-37.0); MCV 91.3 fL (80.0-100.0); MONOCYTES 7.4 % (1.0-8.0); PLATELET COUNT 217 thou/uL (150-400); POLYS 78.8 % (36.0-66.0); RBC 4.38 mil/uL (4.20-5.00); RDW 13.8 % (10.5-14.5); WBC 6.9 thou/uL (4.0-11.0)
[2021-04-12 20:29] LABS: CALCIUM 8.5 mg/dL (8.5-10.1); CREATININE 0.5 mg/dL (0.6-1.0); POTASSIUM 3.5 mmol/L (3.5-5.1)
[2021-04-12 22:08] VITALS: BP 141/79
== END 2021-04-12 22:08 | disposition home or self-care (01) ==
LOC: ER 18:50
PROVIDERS: Emergency Medicine
DX: R51.9 Headache, unspecified (principal); Z20.822 Contact with and (suspected) exposure to COVID-19; F17.210 Nicotine dependence, cigarettes, uncomplicated; Z90.710 Acquired absence of both cervix and uterus; Z90.49 Acquired absence of other specified parts of digestive tract; Z98.51 Tubal ligation status; Z79.899 Other long term (current) drug therapy; Z88.5 Allergy status to narcotic agent; Z91.041 Radiographic dye allergy status

== ENCOUNTER → 2021-04-29 | Outpatient (CLI) | payer MEDICARE, OTHER ==
[~2021-04-29] MED LIST changes: +KLOR-CON 10 ER10 MEQ PO
== END ==
LOC: RAD 11:47
PROVIDERS: ATTEND Nurse Practitioner
DX: M53.86 Other specified dorsopathies, lumbar region (principal)

== ENCOUNTER 2021-08-06 09:24 | Emergency (ER) | payer MEDICARE, OTHER ==
[~2021-08-06] VITALS: Ht 165.1 cm; Wt 79.4 kg
[2021-08-06 09:24] VITALS: BP 149/83
[2021-08-06] MEDS ORDERED: DOXYCYCLINE 10100 MG PO (09:52)
[2021-08-06] MEDS ORDERED: IBUPROFEN 800800 M1 PO (09:52)
== END 2021-08-06 09:57 | disposition home or self-care (01) ==
LOC: ER 09:24
DX: L02.412 Cutaneous abscess of left axilla (principal); N76.4 Abscess of vulva; F17.210 Nicotine dependence, cigarettes, uncomplicated; Z90.710 Acquired absence of both cervix and uterus; Z90.49 Acquired absence of other specified parts of digestive tract; Z98.890 Other specified postprocedural states; Z98.51 Tubal ligation status; Z79.1 Long term (current) use of non-steroidal anti-inflammatories (NSAID); Z79.899 Other long term (current) drug therapy; Z91.09 Other allergy status, other than to drugs and biological substances

== ENCOUNTER 2021-08-08 09:44 | Emergency (ER) | payer MEDICARE, OTHER ==
[~2021-08-08] VITALS: Ht 165.1 cm; Wt 79.4 kg
[~2021-08-08 09:44] MED LIST changes: +DOXYCYCLINE 10100 MG PO
[2021-08-08 10:38] LABS: ABSOLUTE NEUTROPHILS 3.7 thou/uL (1.4-8.2); BASOPHILS 1.5 % (0.0-2.0); EOSINOPHILS 4.4 % (0.0-3.0); HEMATOCRIT 35.5 % (37.0-47.0); HEMOGLOBIN 11.9 gm/dL (12.0-15.0); LYMPHOCYTES 22.3 % (24.0-44.0); MCH 29.8 pg (26.0-34.0); MCHC 33.6 g/dL (28.0-37.0); MCV 88.8 fL (80.0-100.0); MONOCYTES 7.9 % (1.0-8.0); PLATELET COUNT 241 thou/uL (150-400); POLYS 63.9 % (36.0-66.0); RDW 13.7 % (10.5-14.5); WBC 5.9 thou/uL (4.0-11.0)
[2021-08-08] MEDS ORDERED: NAPROSYN500 MG PO (10:46)
[2021-08-08] MEDS ORDERED: XANAX 0.25 MG0.25 MG PO (10:46)
== END 2021-08-08 10:59 | disposition home or self-care (01) ==
LOC: ER 09:44
PROVIDERS: Emergency Medicine
DX: R59.1 Generalized enlarged lymph nodes (principal); F17.210 Nicotine dependence, cigarettes, uncomplicated; Z90.710 Acquired absence of both cervix and uterus; Z90.49 Acquired absence of other specified parts of digestive tract; Z98.51 Tubal ligation status; Z79.899 Other long term (current) drug therapy; Z91.041 Radiographic dye allergy status